=== PATIENT | male | born 1980 | race Caucasian/White ===

== ENCOUNTER 2016-10-29 19:49 | Observation (INO) ==
[2016-10-29] MEDS ORDERED: IBUPROFEN 600 MG TABLET PO STA (20:50)
[2016-10-29] MEDS ORDERED: ASPIRIN CHEW 81 MG TABLET PO STA (20:50)
[2016-10-29] MEDS ORDERED: IBUPROFEN 600 MG TABLET ONE (20:53)
[2016-10-29] MEDS ORDERED: ASPIRIN 325 MG TABLET ONE (20:53)
[2016-10-29 20:56] LABS: Basophils # 0.1 10*3/uL (0.0-0.2); Basophils % 0.8 % (0.0-0.8); Eosinophils # 0.2 10*3/uL (0.0-0.87); Eosinophils % 2.1 % (0.00-10.9); Hematocrit 41.2 VOL% (42.0-52.0); Hemoglobin 14.8 GM/DL (14.0-18.0); Immature Granulocytes % 1.1 %; Immature Granulocytes Absolute 0.11 #; Lymphocytes # 3.6 10*3/uL (1.4-4.0); Lymphocytes % 33.9 % (21.2-54.2); Mean Corpuscular HGB Conc 35.9 GM/DL (32-36); Mean Corpuscular Hemoglobin 32 PG (27-34); Mean Corpuscular Volume 89.6 FL (87-102); Mean Platelet Volume 10.3 FL (9.6-12.0); Monocytes # 0.8 10*3/uL (0.11-0.8); Monocytes % 7.9 % (1.7-12.7); Neutrophils # 5.7 10*3/uL (1.4-7.4); Neutrophils % 54.2 % (38.7-73.9); Platelet Count 328 T/CUMM (130-400); Red Cell Distribution Width 11.7 % (9.3-17.3); White Blood Count 10.5 T/CUMM (4-12)
[2016-10-29 21:20] LABS: Alanine Aminotransferase 85 U/L (16-61); Albumin 4.6 G/DL (3.4-5.0); Alkaline Phosphatase 66 U/L (45-117); Aspartate Amino Transferase 36 U/L (0-37); Bilirubin,Total < 0.39 MG/DL (0.2-1.0); Blood Urea Nitrogen 11 MG/DL (7-18); Calcium 10.1 MG/DL (8.5-10.1); Glucose 86 MG/DL (74-106); Osmolality,Calculated 278.3 MOS/KG (273-304); Sodium 141 MMOL/L (136-145); Total Protein 7.9 G/DL (6.4-8.3); Troponin I Only < 0.015 NG/ML (0.00-0.045)
--- NOTE | 2016-10-29 21:29 | XRay Report ---
XR chest 2V Indication: Chest pain. Comparison: Chest x-ray 05/10/2012 Technique: PA and lateral chest x-ray was performed. Findings: Heart size, mediastinal contour, and hilar structures demonstrate no significant abnormalities. The lung parenchyma is clear. Bones and soft tissues demonstrate no significant abnormalities. Impression: 1. No active cardiopulmonary disease. 10/29/2016 9:25 PM PROCEDURE INTERPRETED AT [facility] DEPARTMENT OF RADIOLOGY Final Report Signed by: Dr. Matt Holman
--- NOTE | 2016-10-29 22:20 | Emergency Department Note ---
ICarleen Gwan, am scribing for, and in the presence of, Abad Zapata MD 21:05. Benny Coker Hans, MD, personally performed the services described in this documentation, ascribed by Marry Durant in my presence, and it is both accurate and complete 220 . Arrival - Arrival Chief Complaint: Chest Pain Stated Complaint: Chest Pains ED Nursing Triage Note: C/C dry cough,left sided chest pain, non radiating. Hasn 't felt good last few days. 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 Patient stated that he has not been feeling well for the past 2 days but today his chest pain worsened prompting him to report to ED. he describes his pain as pressure and that his associated sxs have been PURI, sweaty palms and a hx of broken ribs. Patient confirmed that he lives in [place] [facility] and that he has been followed by Dr. Stan AGUIRRE and [employer] [facility] Velez in [place]. Pt has a SHx of 1 case beer per day and 1 ppd cigarette smoking. Patient then stated that for the past 21 days he has been trying quit and he has not had any ETOH use and that is now only smoking 1 p every 2 weeks cigarettes. He denies abd pain and N/V. During exam, pt did not appear to be in any distress. Onset (ago): hour(s) Consistency: constant Severity: moderate Allergies/Adverse Reactions: Allergies Allergy/AdvReac Type Severity Reaction Status Date / Time clarithromycin [From Biaxin] Allergy Swelling Verified 10/29/16 20:03 of Lip/Tongue/Throat lincomycin [From Lincocin] Allergy Swelling Verified 10/29/16 20:03 of Lip/Tongue/Throat Home Medications: Home Medications Medication Instructions Recorded Confirmed Type Escitalopram [Lexapro] 20 mg PO QAM 10/29/16 10/29/16 History Fenofibrate [Tricor] 145 mg PO QAM 10/29/16 10/29/16 History Meloxicam 15 mg PO QAM 10/29/16 10/29/16 History [place] 3 Acid Ethyl Esters [Lovaza] 2 gm PO BID 10/29/16 10/29/16 History Pravastatin [Pravachol] 40 mg PO QAM 10/29/16 10/29/16 History Review of System - Review of System 12 point system: reviewed and no additional remarkable complaints except as stated - Review of System Constitutional: Present: as per HPI, diaphoresis (just to his palms ). Absent: chills Eyes: Absent: discharge, pain Head/Ears/Nose/Throat: Absent: earache Respiratory: Present: as per HPI, cough Cardiovascular: Present: as per HPI, chest pain Gastrointestinal: Absent: abdominal pain, nausea, vomiting, diarrhea Genitourinary male: Absent: urgency Musculoskeletal: Absent: arm pain, back pain, leg pain, neck pain Skin: Absent: rash Medical,Surgical,& Family Hx - Medical History Endocrine: History of: Dyslipidemia - Surgical History HEENT Surgeries: Patient denies: Tonsilectomy & Adenoidectomy - Social History Smoking Status: Current every day smoker Frequency of Alcohol Use: Frequently Type of Drug Use: None Exam Vital Signs: Vital Signs Temperature 98.9 F 10/29/16 19:53 Pulse Rate 88 10/29/16 21:11 Respiratory Rate 18 10/29/16 21:11 Blood Pressure 111/95 10/29/16 21:11 O2 Sat by Pulse Oximetry 97 10/29/16 21:11 - General General appearance: alert, in no apparent distress - Head Head exam: Present: atraumatic, normocephalic - Eye Eye exam: Present: normal appearance, PERRL, EOMI - ENT ENT exam: Present: normal oropharynx, mucous membranes moist, TM's normal bilaterally, normal external ear exam - Neck Neck exam: Present: full ROM, trachea midline. Absent: tenderness - Chest Chest inspection: Present: symmetric chest wall rise. Absent: tenderness - Respiratory Respiratory exam: Present: normal lung sounds bilaterally. Absent: respiratory distress - Cardiovascular Cardiovascular exam: Present: regular rate, normal rhythm, normal heart sounds. Absent: murmur, rubs - Abdominal Exam Abdominal exam: Present: soft, normal bowel sounds. Absent: distention, tenderness - Extremities Exam Extremities exam: Present: full ROM. Absent: tenderness - Back Exam Back exam: Present: full ROM. Absent: tenderness - Neurological Exam Neurological exam: Present: alert, oriented X3, CN II-XII intact. Absent: motor sensory deficit - Psychiatric Psychiatric exam: Present: normal affect, normal mood - Skin Skin exam: Present: warm, dry, intact, normal color Course Course Narrative: This patient was evaluated with chest x-ray, EKG, and lab work. He had a normal EKG with normal troponin initially and a normal d-dimer. Because of his family history and his personal history as well as the pressure type chest pain and diaphoresis he had during his episode I recommended admission for workup of anginal symptoms and discussed care with the hospital doctor senior director of global [employer] technology solutions. They will come and assess him for admission. Results - Labs CBC & BMP: 10/29/16 20:18 10/29/16 20:18 Lab Results: I have reviewed the patients labs Labs: Laboratory Tests 10/29/16 20:18 WBC 10.5 RBC 4.60 Hgb 14.8 Hct 41.2 L Plt Count 328 Laboratory Tests 10/29/16 10/29/16 20:18 20:18 D-Dimer, Quantitative <= 0.5 Sodium 141 Potassium 4.0 Chloride 104 BUN 11 ALT 85 H - Diagnostic Findings Procedure: Chest x-ray: report reviewed by me (No acute cardiopulomary disease. ) Disposition Clinical Impression: Chest pain Case discussed with: patient, patient's family Disposition: Still a Patient Condition: Stable Instructions: Angina (ED), Chest Pain (ED) Time of Disposition: 22:20
[2016-10-29] MEDS ORDERED: ONDANSETRON 4 MG/2 ML VIAL IV PRN (23:03)
--- NOTE | 2016-10-29 23:09 | Hospitalist History & Physical ---
Assessment and Plan (1) Dyslipidemia Status: Acute Current Visit: Yes (2) Chest pain Status: Acute Assessment and plan: We will admit patient our service. Patient will be placed on telemetry bed. I will consult cardiology for their evaluation. Draw serial troponins enzymes. Check a fasting lipid profile on patient. Continue home meds as appropriate Current Visit: Yes History of Present Illness Chief complaint: Chest pain History of present illness: Mr. Trevino is a 36 year old male with past medical history of severe Geremias increased cholesterol who presents to our hospital with chief complaint of chest pain. Patient has a hard time to describing the chest pain. He reports that it is on the left side is not sharp. Maybe it is dull. There is no radiation of diaphoresis. Patient has a significant family history of heart disease involving both his grandfathers and father. According to his patient has significant problems with his lipids. His enzymes have been negative thus far and I was consulted for admission to the emergency room. He used to be a heavy drinker. But he quit 2 weeks ago. Home Medications Medication Instructions Recorded Confirmed Type Escitalopram [Lexapro] 20 mg PO QAM 10/29/16 10/29/16 History Fenofibrate [Tricor] 145 mg PO QAM 10/29/16 10/29/16 History Meloxicam 15 mg PO QAM 10/29/16 10/29/16 History [place] 3 Acid Ethyl Esters [Lovaza] 2 gm PO BID 10/29/16 10/29/16 History Pravastatin [Pravachol] 40 mg PO QAM 10/29/16 10/29/16 History Allergies Allergy/AdvReac Type Severity Reaction Status Date / Time clarithromycin [From Biaxin] Allergy Swelling Verified 10/29/16 20:03 of Lip/Tongue/Throat lincomycin [From Lincocin] Allergy Swelling Verified 10/29/16 20:03 of Lip/Tongue/Throat Medical,Surgical,& Family Hx - Medical History Endocrine: History of: Dyslipidemia - Surgical History HEENT Surgeries: Patient denies: Tonsilectomy & Adenoidectomy Abdominal Surgeries: Surgical HX of: Appendectomy Orthopedic Surgeries: Surgical HX of;: Orthopedic Surgery - Social History Smoking Status: Current every day smoker Frequency of Alcohol Use: Frequently Type of Drug Use: None 12 point system: reviewed and no additional remarkable complaints except as stated Exam - Constitutional Vitals: Period Temp Pulse Resp BP Sys/Galvan Pulse Ox Last 24 Hr 98.9 F-98.9 F 84-88 16-22 111-136/95-103 97-98 General appearance: over weight - Head Head exam: Present: normal inspection - Eye Eye exam: Present: EOMI Pupils: Present: FABIO - ENT ENT exam: Present: normal exam - Neck Neck exam: Present: normal inspection - Respiratory Respiratory exam: Present: clear to auscultation bilaterally - Cardiovascular Cardiovascular exam: Present: regular rate and rhythm - GI/Abdominal GI/Abdominal exam: Present: normal bowel sounds - Extremities Exam Extremities exam: Present: normal inspection - Back Exam Back exam: Present: normal inspection - Neurological Exam Neurological exam: Present: alert - Psychiatric Psychiatric exam: Present: normal affect, normal mood - Skin Skin exam: Present: normal color Results - Labs CBC & BMP: 10/29/16 20:18 10/29/16 20:18
[2016-10-30 06:34] LABS: Risk Ratio 6.55; VLDL CHOLESTEROL 100.4 MG/DL
--- NOTE | 2016-10-30 08:04 | EKG Report ---
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
[2016-10-30] MEDS ORDERED: ASPIRIN EC 81 MG TABLET PO SCH (09:00)
[2016-10-30] MEDS ORDERED: ENOXAPARIN 40 MG/0.4 ML SYRINGE SUBCUT SCH (09:00)
[2016-10-30] MEDS ORDERED: ESCITALOPRAM 10 MG TABLET PO SCH (09:00)
[2016-10-30] MEDS ORDERED: FENOFIBRATE 145 MG TABLET PO SCH (09:00)
[2016-10-30] MEDS ORDERED: OMEGA 3 ACID ETHYL ESTERS 1 GM CAPSULE PO SCH (09:00)
[2016-10-30] MEDS ORDERED: PRAVASTATIN 40 MG TABLET PO SCH (09:00)
[2016-10-30] MEDS ORDERED: MELOXICAM 7.5 MG TABLET PO SCH (09:00)
[2016-10-30 11:32] VITALS: BP 118/62
--- NOTE | 2016-10-30 12:23 | Discharge Summary ---
Hospital Course - Hospital Course Hospital Course: 36-year-old male with a family history of coronary disease and personal history of smoking and hyperlipidemia presents emergency room with complaints of chest pain. Patient says he has been feeling very fatigued and just not feeling well for the last few days. He does develop some substernal chest pressure with associated shortness of breath and diaphoresis. Blood pressure on arrival to the emergency room was 136/103. His serial cardiac enzymes were negative and his lipid profile showed total cholesterol 249, triglycerides 502, LDL 139. His EKG is unremarkable. Patient had some mild elevation in ALT which probably needs to be rechecked again in 1-2 weeks as he is on TriCor and pravastatin. His CPK is 212. Stress test good. Discussed all results with patient. - Time spent with patient Time with patient DS: Less than 30 minutes (25 min) Specialty Discharge - Follow Up or Referrals Follow up with: dr jazmín [Other] - 1 Week Discharge Plan - Discharge Data Disposition: Disch To Home/Self Care Condition at Discharge: Stable Discharge Diet: heart healthy Activity: resume usual activities as tolerated Hygiene: no restrictions Weight Bearing at Discharge: full weight bearing - Discharge Medications New Aspirin EC Tab 81 mg PO DAILY tablet Continue Pravastatin [Pravachol] 40 mg PO QAM Fenofibrate [Tricor] 145 mg PO QAM Escitalopram [Lexapro] 20 mg PO QAM Discontinued [place] 3 Acid Ethyl Esters [Lovaza] 2 gm PO BID Meloxicam 15 mg PO QAM - Follow Up or Referral Follow Up: dr jazmín [Other] - 1 Week Hal King MD [Physician] - 11/17/16 - Forms/Instructions Instructions: Angina (ED), Chest Pain (ED) Additional Discharge Instructions: discharge home if stress test negative, but call me first. take and record blood pressure three times a day and take numbers with you to see doctor. recheck liver enzymes in 3 weeks Exam - Constitutional Vitals: Period Temp Pulse Resp BP Sys/Galvan Pulse Ox Last 24 Hr 97.2 F-98.9 F 54-88 16-22 111-136/58-103 94-98 General appearance: normal weight, no acute distress - Respiratory Respiratory exam: Present: clear to auscultation bilaterally. Absent: rhonchi, wheezes - Cardiovascular Cardiovascular exam: Present: regular rate and rhythm. Absent: systolic murmur - GI/Abdominal GI/Abdominal exam: Present: normal bowel sounds, soft. Absent: tenderness, rebound - Extremities Exam Extremities exam: Present: normal inspection, normal capillary refill Discharge Results Procedures and tests throughout hospitalization: Pending Orders 10/30/16 11:16 NM janna perf SPECT rest or str Routine Labs on day of discharge: Labs from last 24 hours 10/30/16 10/30/16 10/30/16 06:58 00:03 00:03 WBC RBC Hgb Hct MCV MCH MCHC RDW Plt Count MPV Neut % (Auto) Lymph % (Auto) [place] % (Auto) Eos % (Auto) Baso % (Auto) Neut # (Auto) Lymph # (Auto) [place] # (Auto) Eos # (Auto) Baso # (Auto) Immature Gran % Nucleated RBC % Immature Gran # Nucleated RBCs # D-Dimer, Quantitative Sodium Potassium Chloride Carbon Dioxide Anion Gap BUN Creatinine GFR Calculation BUN/Creatinine Ratio Glucose Calculated Osmolality Calcium Total Bilirubin AST ALT Alkaline Phosphatase Total Creatine Kinase CK-MB (CK-2) Troponin I < 0.015 < 0.015 Total Protein Albumin Globulin Albumin/Globulin Ratio Triglycerides 502 H Cholesterol 249 H LDL Cholesterol 139.0 VLDL Cholesterol 100.4 HDL Cholesterol 38 L Heart Disease Risk Ratio 6.55 10/29/16 10/29/16 10/29/16 20:18 20:18 20:18 WBC 10.5 RBC 4.60 Hgb 14.8 Hct 41.2 L MCV 89.6 MCH 32 MCHC 35.9 RDW 11.7 Plt Count 328 MPV 10.3 Neut % (Auto) 54.2 Lymph % (Auto) 33.9 [place] % (Auto) 7.9 Eos % (Auto) 2.1 Baso % (Auto) 0.8 Neut # (Auto) 5.7 Lymph # (Auto) 3.6 [place] # (Auto) 0.8 Eos # (Auto) 0.2 Baso # (Auto) 0.1 Immature Gran % 1.1 Nucleated RBC % 0.0 Immature Gran # 0.11 Nucleated RBCs # 0.00 D-Dimer, Quantitative <= 0.5 Sodium 141 Potassium 4.0 Chloride 104 Carbon Dioxide 26 Anion Gap 15.0 BUN 11 Creatinine 1.00 GFR Calculation 123 BUN/Creatinine Ratio 11.00 Glucose 86 Calculated Osmolality 278.3 Calcium 10.1 Total Bilirubin < 0.39 AST 36 ALT 85 H Alkaline Phosphatase 66 Total Creatine Kinase 212 CK-MB (CK-2) 1.5 Troponin I < 0.015 Total Protein 7.9 Albumin 4.6 Globulin 3.3 Albumin/Globulin Ratio 1.3 Triglycerides Cholesterol LDL Cholesterol VLDL Cholesterol HDL Cholesterol Heart Disease Risk Ratio DS: Provider Date of admission: 10/29/16 23:03 Primary care physician: . No PCP Attending physician on admission: Orestes Conley MD Consults: 10/29/16 23:05 Consult to Physician [CONS] Routine Comment: Consulting Provider: Cardiology - [facility] Consult to Specialist Group: Cardiology When should Consulting Provider be notified: In am Person Notified: JACQUES Date Notified: 10/30/16 Time Notified: 08:40 Discharging clinician: Maye Mehta MD
--- NOTE | 2016-10-30 16:10 | Cardiology Consult Note ---
Oseas Coker April RN, am scribing for, and in the presence of, Hal King MD 16 :08. Assessment and Plan - Time spent with patient Time spent with patient: Greater than 30 minutes (Due to assessment, planning, documentation, medication review) Time spent discussing smoking cessation with patient: more than 10 minutes (1) Chest pain Status: Acute Assessment and plan: 36-year-old man, with family or hypertriglyceridemia, less than optimal medication compliance, smoking. He was admitted with persistent chest pain, not typical for angina. Stress test showed no evidence of cardiomyopathy or myocardial ischemia. -We discussed importance of smoking cessation and compliance with his lipid regimen. -He recently started being more compliant with medications and his discomfort started thereafter. This could be related to medications, in this case he could try different formulary alternatives. He can also have pancreatitis from elevated triglycerides. -Continue aspirin for primary prevention. -Please call with further questions. 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 Temple if he needs follow-up PCP: None Mr. Trevino is a 36 year old male who is never seen a book packer. He has a history of dyslipidemia and depression. He reports his triglycerides have been as high as 1400, stating they were about 900 3 weeks ago. He works in the [employer] and reports he has had numerous stress tests, but the last some was more than 5 years ago. He states he was told all the stresses he has had in the past have been okay. Surgical history includes appendectomy and right shoulder. Family history is positive for both paternal and maternal grandfathers dying with MIs in their 50s, his father had an OR in his 40s as well as hypertension and diabetes, and his mother had lupus. He reports he smokes about 1 pack every 3 days and has for 10 years. He also dips tobacco. He has been a heavy drinker, but he states he has had no alcohol in the last 14 days. He reports he has not been very compliant with his lipid medications, but for the last 3 weeks he has taken them without fail. For the past 4-5 days he has not felt good and is been very weak. Last p.m. he developed a dull pain in his left chest that he reports is constant and he rates it as a 2 or 3 on a scale of 1-10. It is not reproducible and does not radiate. He did not note anything that made this pain worse as he was sitting when it started. He does report that sitting more upright does seem to help. The pain started around 7 PM last night and he reports he had last eaten at lunch when he went to [facility]. He also had a headache and right leg numbness associated with this pain. He denied any shortness of breath, palpitations, or dizziness with this pain. He presented to the emergency department last night for further evaluation. D-dimer has been negative, troponin has been negative 3. All labs have been unremarkable except for elevated lipids. EKG on admission showed sinus rhythm with heart rate 86. Chest x-ray was unremarkable. Mr. Trevino is seen today resting in bed in no acute distress. He reports he still has the same dull chest pain he had last night, stating is a 1 or 2 on a scale of 1-10. He still has a dull headache, he no longer has the right leg numbness. 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 His vital signs have been stable, blood pressure 118/58. I discussed with the patient the importance of taking his cholesterol medicines as well as smoking cessation. Will perform nuclear stress testing on the patient. CC: Maye Mehta MD - Home Medications and Allergies Home Medications: Home Medications Medication Instructions Recorded Confirmed Type Escitalopram [Lexapro] 20 mg PO QAM 10/29/16 10/30/16 History Fenofibrate [Tricor] 145 mg PO QAM 10/29/16 10/30/16 History Pravastatin [Pravachol] 40 mg PO QAM 10/29/16 10/30/16 History Aspirin EC Tab 81 mg PO DAILY tablet 10/30/16 Rx Allergies/Adverse Reactions: Allergies Allergy/AdvReac Type Severity Reaction Status Date / Time clarithromycin [From Biaxin] Allergy Swelling Verified 10/29/16 20:03 of Lip/Tongue/Throat lincomycin [From Lincocin] Allergy Swelling Verified 10/29/16 20:03 of Lip/Tongue/Throat - Constitutional Constitutional: Present: as per HPI - EENT Eyes: Absent: blurry vision, loss of vision, requires corrective lense Ears: Absent: decreased hearing, ear pain, tinnitus Nose, mouth and throat: Present: headache(s). Absent: neck pain - Cardiovascular Cardiovascular: Present: chest pain at rest, chest pain with activity. Absent: diaphoresis, dyspnea, dyspnea on exertion, edema, radiating jaw, neck or arm pain, lightheadedness, orthopnea, palpitations - Respiratory Respiratory: Present: cough. Absent: dyspnea, hemoptysis, dyspnea on exertion, wheezing - Gastrointestinal Gastrointestinal: Absent: abdominal pain, constipation, diarrhea, hematemesis, hematochezia, melena, nausea, vomiting - Genitourinary Genitourinary: Absent: dysuria, hematuria - Musculoskeletal Musculoskeletal: Absent: back pain, limited range of motion, muscle weakness - Neurological Neurological: Present: headache(s). Absent: abnormal gait, abnormal speech, confusion, dizziness, frequent falls, syncope - Psychiatric Psychiatric: Absent: anxiety, confusion - Endocrine Endocrine: Present: fatigue - Hematologic/Lymphatic Hematologic/Lymphatic: Absent: easy bleeding, easy bruising Medical,Surgical,& Family Hx - Medical History Endocrine: History of: Dyslipidemia - Surgical History HEENT Surgeries: Patient denies: Tonsilectomy & Adenoidectomy Abdominal Surgeries: Surgical HX of: Appendectomy Orthopedic Surgeries: Surgical HX of;: Orthopedic Surgery (Right shoulder) - Family History Family History: Reports;: Family Diabetes (Father), Family Heart Disease ( Grandfather on both sides had MIs in their 50s, Father had an OR in his 40s), Family Hypertension (Father), Family Stroke (Grandmother), Additional Family History (Mother-Lupus) - Social History Smoking Status: Current every day smoker Have you smoked in the last 12 months: Yes Time spent discussing smoking cessation with patient: more than 10 minutes Frequency of Alcohol Use: Frequently Type of Drug Use: None Marital Status: Lives With:: Spouse Functional capacity: independent ambulation Physical Examination Vital Signs Temp Pulse Resp BP Pulse Ox 98.9 F 84 16 129/95 98 10/29/16 19:53 10/29/16 19:53 10/29/16 19:53 10/29/16 19:53 10/29/16 19:53 General: Present: Appears Well, No Apparent Distress HEENT: Present: PERRL, Mucus Membranes Moist Neck: Present: Supple Neck, Midline Trachea, No Bruit Cardiac: Present: Reg Rate and Rhythm, No Murmur Lungs: Present: Normal Breath Sounds, No Wheeze, Rales, Rhonchi Neuro: Absent: Resting Tremor, Essential Tremor Abdomen: Present: Soft, Active Bowel Sounds, Non-Tender. Absent: Distended Skin: Present: Clear Gait: Present: Normal Gait Extremities: Present: Normal Gait, No Edema, Normal Upper Extr. Pulses, Normal Lower Extr. Pulses Result/EKG - Labs CBC & BMP: 10/29/16 20:18 10/29/16 20:18 Lab Results: I have reviewed the past 24 hour labs Labs: Laboratory Results - last 24 hr 10/29/16 10/29/16 10/29/16 20:18 20:18 20:18 WBC 10.5 RBC 4.60 Hgb 14.8 Hct 41.2 L MCV 89.6 MCH 32 MCHC 35.9 RDW 11.7 Plt Count 328 MPV 10.3 Neut % (Auto) 54.2 Lymph % (Auto) 33.9 [place] % (Auto) 7.9 Eos % (Auto) 2.1 Baso % (Auto) 0.8 Neut # (Auto) 5.7 Lymph # (Auto) 3.6 [place] # (Auto) 0.8 Eos # (Auto) 0.2 Baso # (Auto) 0.1 Immature Gran % 1.1 Nucleated RBC % 0.0 Immature Gran # 0.11 Nucleated RBCs # 0.00 D-Dimer, Quantitative <= 0.5 Sodium 141 Potassium 4.0 Chloride 104 Carbon Dioxide 26 Anion Gap 15.0 BUN 11 Creatinine 1.00 GFR Calculation 123 BUN/Creatinine Ratio 11.00 Glucose 86 Calculated Osmolality 278.3 Calcium 10.1 Total Bilirubin < 0.39 AST 36 ALT 85 H Alkaline Phosphatase 66 Total Creatine Kinase 212 CK-MB (CK-2) 1.5 Troponin I < 0.015 Total Protein 7.9 Albumin 4.6 Globulin 3.3 Albumin/Globulin Ratio 1.3 Triglycerides Cholesterol LDL Cholesterol VLDL Cholesterol HDL Cholesterol Heart Disease Risk Ratio 10/30/16 10/30/16 10/30/16 00:03 00:03 06:58 WBC RBC Hgb Hct MCV MCH MCHC RDW Plt Count MPV Neut % (Auto) Lymph % (Auto) [place] % (Auto) Eos % (Auto) Baso % (Auto) Neut # (Auto) Lymph # (Auto) [place] # (Auto) Eos # (Auto) Baso # (Auto) Immature Gran % Nucleated RBC % Immature Gran # Nucleated RBCs # D-Dimer, Quantitative Sodium Potassium Chloride Carbon Dioxide Anion Gap BUN Creatinine GFR Calculation BUN/Creatinine Ratio Glucose Calculated Osmolality Calcium Total Bilirubin AST ALT Alkaline Phosphatase Total Creatine Kinase CK-MB (CK-2) Troponin I < 0.015 < 0.015 Total Protein Albumin Globulin Albumin/Globulin Ratio Triglycerides 502 H Cholesterol 249 H LDL Cholesterol 139.0 VLDL Cholesterol 100.4 HDL Cholesterol 38 L Heart Disease Risk Ratio 6.55 - Diagnostic Findings Procedure: Chest x-ray: report reviewed by me - EKG EKG results: interpreted by me EKG shows: sinus rhythm Specialty Discharge - Follow Up or Referrals Follow up with: jazmín, [Other] - 1 Week Fernando Coker Attila, MD, personally performed the services described in this documentation, ascribed by Ivone Farooq RN in my presence, and it is both accurate and complete 610 .
--- NOTE | 2016-10-30 16:20 | Event Note ---
Underwent cardiolyte stress testing without difficulty. Achieved THR without complaints of chest lam nor EKG changes. No arrythmia noted. Blood pressure responded appropriately. Now, to nuclear medicine for final scan. Dr. King to read, interpret and advise
--- NOTE | 2016-10-30 19:23 | Nuclear Medicine Report ---
EXERCISE STRESS TEST Stress test interpreted by Dr. Hal King. INDICATION: Chest pain. PROCEDURE: At rest, 10 mCi of 99-Technetium labeled Sestamibi was injected and rest images were obta ined. The patient then exercise according to the Zhen treadmill stress protocol. At peak stress, 3 0 mCi of 99-Technetium labeled Sestamibi was injected and poststress images were obtained. FINDINGS: At rest, sinus rhythm, 97 beats per minute, normal repolarization. Blood pressure 100/70 mmHg. The patient exercised for 11 minutes and 5 seconds, achieving a peak heart rate of 169 beats p er minute, 85% of the age-predicted, maximum heart rate. The blood pressure benjamín to 142/82 mmHg. Th e test was stopped due to achieving the peak submaximal heart rate, there was no chest pain. The pat ient achieved 11.7 METS. Rest and poststress gated and perfusion images were obtained. The left charlie tricle is normal in size, the end-diastolic volume is 87 cc, the end-systolic volume is 41 cc, the ca lculated left ventricular ejection fraction is 53%. There are no focal wall motion abnormalities. T here are some motion artifacts on poststress and rest images. At rest, there is an area of mildly de creased activity in the apical region, which improved poststress. There are no corresponding wall mo tion abnormalities. These findings are suggestive of imaging artifacts. CONCLUSIONS: 1. CLINICALLY AND ELECTRICALLY NEGATIVE SUBMAXIMAL TREADMILL STRESS TEST. HOLLIS TREADMILL SCORE IS 1 1. 2. NORMAL LEFT VENTRICULAR SIZE, NORMAL SYSTOLIC FUNCTION, NO EVIDENCE OF MYOCARDIAL ISCHEMIA OR OLD DISEASE. 3. THIS IS A LOW-RISK TEST. Procedure performed and interpreted at [facility] Department of Radiology.
== END 2016-10-30 16:52 | disposition home or self-care (01) ==
LOC: N.ED 19:49 → N.EDINP 19:49 → SUATTDRO 23:03 → N.TELEN 23:19
PROVIDERS: ADMIT Internal Medicine; ATTEND Internal Medicine

== ENCOUNTER 2019-04-28 01:09 | Observation (INO) ==
[2019-04-28] MEDS ORDERED: ONDANSETRON 4 MG/2 ML VIAL IV STA (01:49)
[2019-04-28] MEDS ORDERED: ASPIRIN 325 MG TABLET PO STA (01:49)
[2019-04-28] MEDS ORDERED: MORPHINE 4 MG/1 ML VIAL IV STA (01:49)
[2019-04-28] MEDS ORDERED: NITROGLYCERIN 2% OINT 1 INCH/GM PACK TOP STA (01:49)
[2019-04-28] MEDS ORDERED: ALUM/MAG/SIMETH/LIDO VISC 1:1 30 ML BOTTLE PO STA (01:49)
[2019-04-28 02:07] LABS: Basophils # 0.1 10*3/uL (0.0-0.2); Basophils % 0.7 % (0.0-0.8); Eosinophils # 0.4 10*3/uL (0.0-0.87); Eosinophils % 4.2 % (0.00-10.9); Hematocrit 43.3 VOL% (42.0-52.0); Hemoglobin 15.4 GM/DL (14.0-18.0); Immature Granulocytes % 1.2 %; Immature Granulocytes Absolute 0.11 #; Lymphocytes # 2.2 10*3/uL (1.4-4.0); Lymphocytes % 24.5 % (21.2-54.2); Mean Corpuscular HGB Conc 35.6 GM/DL (32-36); Mean Platelet Volume 10.4 FL (9.6-12.0); Neutrophils % 60.4 % (38.7-73.9); Platelet Count 258 T/CUMM (130-400); Red Blood Count 4.81 MC/CUMM (3.8-5.5); Red Cell Distribution Width 11.7 % (9.3-17.3); White Blood Count 9.1 T/CUMM (4-12)
[2019-04-28 02:15] LABS: INR 0.9; PT Patient Result 9.4 SECS (9.6-12.2)
[2019-04-28 02:24] LABS: Albumin 3.7 G/DL (3.4-5.0); Bilirubin,Total 0.5 MG/DL (0.2-1.0); Total Protein 7.5 G/DL (6.4-8.3)
[2019-04-28] MEDS ORDERED: ENOXAPARIN 100 MG/ML SYRINGE SUBCUT STA (03:16)
[2019-04-28] MEDS ORDERED: ONDANSETRON 4 MG/2 ML VIAL IV PRN (03:34)
[2019-04-28] MEDS ORDERED: MORPHINE 4 MG/1 ML VIAL IV PRN (03:34)
[2019-04-28] MEDS ORDERED: DEXTROSE 50% 25 GM/50 ML VIAL IV PRN (05:09)
[2019-04-28] MEDS ORDERED: GLUCAGON 1 MG VIAL IM PRN (05:09)
[2019-04-28] MEDS ORDERED: IBUPROFEN 800 MG TABLET PO ONE (05:56)
[2019-04-28] MEDS ORDERED: NITROGLYCERIN 2% OINT 1 INCH/GM PACK TOP SCH (06:00)
[2019-04-28 07:42] LABS: Risk Ratio 11.27
[2019-04-28] MEDS: INSULIN REGULAR 100 UNIT/ML SUBCUT SCH ×2 (08:14→12:38)
[2019-04-28] MEDS ORDERED: LISINOPRIL 2.5 MG TABLET PO SCH (09:00)
[2019-04-28] MEDS ORDERED: ESCITALOPRAM 10 MG TABLET PO SCH (09:00)
[2019-04-28] MEDS ORDERED: ROSUVASTATIN 20 MG TABLET PO SCH (09:00)
[2019-04-28] MEDS ORDERED: ASPIRIN EC 81 MG TABLET PO SCH (09:00)
[2019-04-28] MEDS ORDERED: FENOFIBRATE 145 MG TABLET PO SCH (09:00)
[2019-04-28] MEDS ORDERED: ACETAMINOPHEN 325 MG TABLET PO SCH (13:30)
[2019-04-28] MEDS ORDERED: PANTOPRAZOLE 40 MG TABLET PO SCH (13:30)
[2019-04-28 13:35] VITALS: BP 125/77
[2019-04-28] MEDS ORDERED: GABAPENTIN 100 MG CAPSULE PO SCH (15:00)
== END 2019-04-28 15:45 | disposition home or self-care (01) ==
LOC: N.ED 01:09 → N.EDINP 01:09 → N.5E 04:23
PROVIDERS: ADMIT Internal Medicine; ATTEND Internal Medicine